=== PATIENT | female | born 1980 ===

== ENCOUNTER 2018-01-23 07:30 | Day surgery (SDC) | payer OTHER ==
[~2018-01-23 07:30] MED LIST: SYNTHROID200 MCG PO
== END 2018-01-23 14:34 | disposition home or self-care (01) ==
LOC: CIR.AMB 07:30 → UNDOADMIN 07:30 → O/R 07:30 → CIR.AMB 09:00 → EDSTATUS 09:00 → O/R 13:35 → CIR.AMB 14:34
DX: K80.10 Calculus of gallbladder with chronic cholecystitis without obstruction (principal)